=== PATIENT | male | born 1965 | race Caucasian/White ===

== ENCOUNTER 2017-08-22 14:43 | Inpatient (IN) | payer MEDICAID, OTHER ==
[~2017-08-22] VITALS: Ht 180.3 cm; Wt 99.8 kg
[2017-08-22 14:45] VITALS: BP 144/87
--- NOTE | 2017-08-22 15:00 | NUR ---
52 YO M TO WITH C/O CP AND HEADACHE. AWAKE ALERT AND ORIENTED TO PERSON PLACE TIME AND EVENT. PT STATES PAIN STARTED X1WK AGO WITH INCREASED PAIN YESTERDAY EVENING. PAIN 10/10. PT DENIES ANY N/V/D. NO SOB AT THIS TIME. PT DENIES ANY ABD PAIN. PT POSITIONED FOR COMFORT. WILL CONTINUE TO MONITOR. ER MADE AWARE.
[2017-08-22] MEDS ORDERED: ASPIRIN 325 MG TAB PO ONE (15:10)
[2017-08-22] MEDS ORDERED: NITROGLYCERIN 2% 1 GM PKT TP ONE (15:10)
[2017-08-22] MEDS ORDERED: KETOROLAC 30 MG/ML VIAL IVP ONE (15:10)
--- NOTE | 2017-08-22 15:10 | NUR ---
Patient being evaluated by physician at bedside.
--- NOTE | 2017-08-22 15:20 | NUR ---
XRAY AT BEDSIDE
[2017-08-22 15:55] LABS: BASOPHILS % (AUTO) 0.3 % (0.0-2.0); EOSINOPHILS # (AUTO) 0.4 K/uL (0-0.4); EOSINOPHILS % (AUTO) 3.2 % (0.0-4.0); HEMOGLOBIN 15.1 g/dL (12.0-18.0); LYMPHOCYTES % (AUTO) 15.3 % (20.5-51.1); MEAN CORPUSCULAR HEMOGLOBIN 29 pg (27-31); MEAN CORPUSCULAR HGB CONC 34 g/dL (33-37); MEAN CORPUSCULAR VOLUME 86.2 fL (80-94); MONOCYTES # (AUTO) 0.8 K/uL (0.8-1.0); MONOCYTES % (AUTO) 6.1 % (1.7-9.3); NEUTROPHILS # (AUTO) 9.8 K/uL (1.8-7.7); NEUTROPHILS % (AUTO) 75.1 % (42.2-75.2); PLATELET COUNT (AUTO) 249 K/uL (140-450); RED BLOOD CELL COUNT(AUTO) 5.22 MIL/uL (4.20-6.10); WHITE BLOOD COUNT (AUTO) 13.1 K/uL (4.8-10.8)
--- NOTE | 2017-08-22 16:10 | NUR ---
PT OFFERED URINAL
[2017-08-22 16:46] LABS: PROTHROMBIN TIME 10.8 secs (10.8-13.4)
[2017-08-22 16:56] LABS: POTASSIUM 3.7 mmol/L (3.5-5.1)
[2017-08-22 16:57] LABS: ANION GAP 15.3 (8-16); CARBON DIOXIDE 27.4 mmol/L (21-32); CREATININE 1.3 mg/dL (0.7-1.3)
[2017-08-22 17:00] LABS: ALBUMIN 3.8 g/dL (3.4-5.0); TOTAL BILIRUBIN 0.5 mg/dL (0.0-1.0)
--- NOTE | 2017-08-22 17:00 | NUR ---
PT TALKING WITH FAMILY AY BEDSIDE IN NO APPEARENT DISTRESS
--- NOTE | 2017-08-22 17:25 | NUR ---
PT APPEARS TO BE SLEEPING IN NO APPEARENT DISTRESS WILL CONTINUE TO MONITOR
[2017-08-22] MEDS ORDERED: MORPHINE SULFATE 2 MG/ML SYR IVP PRN (17:50)
[2017-08-22] MEDS ORDERED: ACETAMINOPHEN 325 MG TAB PO PRN (17:50)
[2017-08-22] MEDS ORDERED: MUPIROCIN 2% OINT 22 GM TUBE TP PRN (17:50)
[2017-08-22] MEDS ORDERED: DOCUSATE SODIUM 100 MG GELCAP PO PRN (17:50)
[2017-08-22] MEDS ORDERED: HYDROcodone/APAP 5/325 MG 1 TAB TAB PO PRN (17:50)
[2017-08-22] MEDS ORDERED: ZOLPIDEM 5 MG TAB PO PRN (17:50)
[2017-08-22] MEDS ORDERED: LORazepam 2 MG/ML VIAL IM/IVP PRN (17:50)
[2017-08-22] MEDS ORDERED: ONDANSETRON 4 MG/2 ML VIAL IM/IVP PRN (17:50)
[2017-08-22] MEDS ORDERED: NITROGLYCERIN 0.4 MG TAB SL PRN (17:55)
--- NOTE | 2017-08-22 18:14 | NUR ---
EMT AT BED SIDE CONNECTING PT TO PORTABLE MONITOR. PT IN NO APPEARENT DISTRESS.
[2017-08-22 18:20] VITALS: BP 119/66
--- NOTE | 2017-08-22 18:20 | NUR ---
PT ARRIVED ON THE UNIT W/ 2 E/R NURSES. PT IS ALERT AND ORIENTED. PT IS AMBULATORY. AMBULATED TO THE BATHROOM AND GAVE URINE SAMPLE. V/S WITHIN NORMAL RANGE. PAIN LEVEL ABOUT 7/10. BEFORE IT WAS 10/10 IN THE ER. CHEST PAIN, "RADIATES TO THE L SHOULDER TO THE BACK." ADMINISTERED TELE MONITOR. NOTED NITRO BID. MRSA SCREENING DONE. BROWN SOCK ADMINISTERED. ALL PERSONAL BELONGINGS, INCLUDING PHONE AND SHOES IN THE DRAWER. IV SITE ON R AC 20G. WILL CONTINUE TO MONITOR PT.
--- NOTE | 2017-08-22 18:25 | NUR ---
Patient will be admitted to care of DR VELÁZQUEZ. Admited to TELE. Will go to room 111A. Belongings list completed. Report to [facility] .
[2017-08-22 18:30] VITALS: BP 119/66
[2017-08-22] MEDS: NACL 0.9% 1,000 ML IV SCH (19:08)
--- NOTE | 2017-08-22 19:10 | NUR ---
ENDORSED PT TO THE POLISHING MACHINE OPERATOR NURSE AT BEDSIDE FOR CONTINUITY OF CARE. PT IN STABLE CONDITION.
--- NOTE | 2017-08-22 19:15 | NUR ---
RECEIVED REPORT FROM [facility] NURSE CANALES AT BEDSIDE FOR CONTINUITY OF CARE. PT [id number]. PT IV RAC 20G NS 60 ML/HR. NO SOB NO S/S OF DISTRESS. ON RA. BED LOWERED CALL LIGHT WITHIN REACH. WILL CONTINUE TO MONITOR.
[2017-08-22] MEDS ORDERED: NICOTINE TRANSD SYS 14 MG/24 HR PATCH TD SCH (20:00)
[2017-08-22] MEDS: METOPROLOL 25 MG TAB PO SCH (20:07)
[2017-08-22] MEDS ORDERED: KETOROLAC 15 MG/ML VIAL IVP PRN (20:10)
[2017-08-22] MEDS ORDERED: IBUPROFEN 600 MG TAB PO PRN (20:10)
[2017-08-22 20:34] LABS: APPEARANCE,URINE CLEAR (CLEAR); COLOR,URINE AMBER (YELLOW)
[2017-08-22 20:35] LABS: BILIRUBIN,URINE NEGATIVE (NEGATIVE); BLOOD, URINE NEGATIVE (NEGATIVE); LEUKOCYTE ESTERASE ,URINE NEGATIVE (NEGATIVE); NITRITE, URINE NEGATIVE (NEGATIVE); PH,URINE 6.5 (5.0-9.0); UGLUCOSE NEGATIVE (NEGATIVE)
[2017-08-22 20:42] LABS: RBC,URINE 0-5 (RARE) /HPF (0-5); WBC,URINE 0-5 (RARE) /HPF (0-5)
[2017-08-22] MEDS ORDERED: ATORVASTATIN 20 MG TAB PO SCH (21:00)
--- NOTE | 2017-08-22 22:00 | NUR ---
PT TOOK MEDS WELL WILL CONTINUE TO MONITOR. PT AWARE OF NPO AFTER MIDNIGHT.
[2017-08-22 23:10] LABS: CHOL/HDL RATIO 5.3 (1-4.5); PHOSPHORUS 3.2 mg/dL (2.5-4.9); THYROID STIMULATING HORMONE 0.9 uIU/mL (0.34-3.74)
[2017-08-23] VITALS: BP 117/51
[2017-08-23 00:37] LABS: BARBITURATE, URINE NEG. ng/ml (NEG <=200); BENZODIAZEPINE, URINE NEG. ng/mL (NEG <=200); CANNABINOID, URINE NEG. ng/mL (NEG <=50); COCAINE, URINE NEG. ng/mL (NEG <=300); OPIATE, URINE NEG. ng/mL (NEG <=2000); PHENCYCLIDINE SCREEN,URINE NEG. ng/mL (NEG <=25)
--- NOTE | 2017-08-23 02:59 | NUR ---
PT SLEEPING NO SOB NO S/S OF DISTRESS WILL CONTINUE TO MONITOR.
[2017-08-23 04:00] VITALS: BP 126/63
--- NOTE | 2017-08-23 04:00 | NUR ---
PT SLEEPING NO SOB NO S/S OF DISTRESS. WILL CONTINUE TO MONITOR.
--- NOTE | 2017-08-23 07:30 | NUR ---
ENDORSED REPORT TO DAYSHIFT NURSE AT BEDSIDE FOR CONTINUITY OF CARE.
--- NOTE | 2017-08-23 07:30 | NUR ---
RECEIVED REPORT FROM RECORDS MANAGEMENT COORDINATOR RN. PT SLEEPING IN BED AROUSABLE. A/O X4. VERBALIZES NEEDS. SKIN DRY AND WARM TO TOUCH. IN ROOM AIR SPO2 96%. LUNGS CLEAR ON AUSCULTATION. EVEN EXPANSION. RIGHT AC NOTED INTACT, NO SWELLING NO INFILTRATION NOTED. NS RUNNING AT 60 ML/HR. ABDOMEN SOFT ROUND AND NON-TENDER. HYPOACTIVE BOWEL SOUND. SKIN INTACT. KEPT HOB ELEVATED, BED IN LOW POSITION LOCKED. WILL CONTINUE TO MONITOR.
[2017-08-23 07:36] LABS: BASOPHILS % (AUTO) 0.3 % (0.0-2.0); EOSINOPHILS # (AUTO) 0.5 K/uL (0-0.4); HEMATOCRIT 40.3 % (36-52); HEMOGLOBIN 13.5 g/dL (12.0-18.0); LYMPHOCYTES # (AUTO) 2.8 K/uL (2.0-11.5); LYMPHOCYTES % (AUTO) 21.6 % (20.5-51.1); MEAN CORPUSCULAR HEMOGLOBIN 29 pg (27-31); MEAN CORPUSCULAR HGB CONC 34 g/dL (33-37); MEAN CORPUSCULAR VOLUME 86.4 fL (80-94); MONOCYTES # (AUTO) 0.9 K/uL (0.8-1.0); MONOCYTES % (AUTO) 6.8 % (1.7-9.3); NEUTROPHILS # (AUTO) 8.8 K/uL (1.8-7.7); NEUTROPHILS % (AUTO) 67.3 % (42.2-75.2); PLATELET COUNT (AUTO) 215 K/uL (140-450); RED BLOOD CELL COUNT(AUTO) 4.67 MIL/uL (4.20-6.10); RED CELL DISTRIBUTION WIDTH 13.8 % (11.6-13.7); WHITE BLOOD COUNT (AUTO) 13.1 K/uL (4.8-10.8)
[2017-08-23 08:00] VITALS: BP 118/73
[2017-08-23 08:20] LABS: ANION GAP 11.1 (8-16); CREATININE 1.1 mg/dL (0.7-1.3); POTASSIUM 4.1 mmol/L (3.5-5.1)
[2017-08-23 08:22] LABS: T4 (THYROXINE) 7.4 ug/dL (4.5-12.0)
[2017-08-23 08:27] LABS: MAGNESIUM 1.9 mg/dL (1.8-2.4); PHOSPHORUS 2.5 mg/dL (2.5-4.9)
[2017-08-23] MEDS ORDERED: LISINOPRIL 5 MG TAB PO SCH (09:00)
[2017-08-23] MEDS ORDERED: ASPIRIN 81 MG TAB.CHEW PO SCH (09:00)
[2017-08-23] MEDS: METOPROLOL 25 MG TAB PO SCH (09:00)
[2017-08-23] MEDS: NACL 0.9% 1,000 ML IV SCH ×2 (09:15→12:36)
--- NOTE | 2017-08-23 10:05 | NUR ---
CM NOTE PER [facility] PH# [phone] EXT *[phone], REVIEWS SHOULD BE SENT TO BOTH [facility] AND [facility]. [facility] ALSO STATED THAT FOR ANY DISCHARGE NEEDS FOR DME OR HOME HEALTH TO CONTACT [facility] AND FOR ANY DISCHARGE NEED FOR SNF TO CONTACT [facility]. INITIAL REVIEW FAXED TO [facility] [phone] PH# [phone] [facility] EXT [phone] AND TO [facility] [phone] PH# [phone] [facility] EXT *[phone].
[2017-08-23 12:00] VITALS: BP 118/73
[2017-08-23] MEDS ORDERED: CYCLOBENZAPRINE 10 MG TAB PO PRN (12:15)
[2017-08-23] MEDS ORDERED: INSULIN LISPRO SLIDING SCALE 100 UNITS/ML VIAL SUBQ PRN (12:20)
[2017-08-23] MEDS ORDERED: DEXTROSE 50% 50 ML SYR IVP PRN (12:20)
--- NOTE | 2017-08-23 12:45 | NUR ---
PT REFUSED IV FLUID ADMINISTRATION. INSIST TO TAKE OUT IV CANNULA. NURSE EXPLAINED THE NEED OF IV CANNULA IN CASE OF EMERGENCY FOR NOW. WILL REMOVE BEFORE PT LEAVE. PT SAID OKAY. PT WANTS TO GO HOME WITHOUT DISCHARGE ORDER. DR. RHOADES AWARE. PT ASKING FOR PAPERS TO SIGN SO THAT HE CAN LEAVE.
--- NOTE | 2017-08-23 12:54 | NUR ---
PT INSISTING TO GO HOME RIGHT NOW. DR. GREGORY MADE AWARE. SAID OKAY TO LEAVE PT ON AMA. AMA PAPER SIGNED BY PT.
--- NOTE | 2017-08-23 12:59 | NUR ---
NOTIFY PT THAT DOCTOR WANTS TO TALK WITH HIM AFTER SHE BACK FROM BREAK. PT STATED HE DOESN'T WANT TO WAIT ANYBODY.
--- NOTE | 2017-08-23 13:05 | NUR ---
PT LEFT ROOM. AMBULATORY. GIRLFRIEND WAS WITH HIM.
[2017-08-23] MEDS ORDERED: BLOOD GLUCOSE MONITORING 1 DEV DEV FS SCH (16:30)
[2017-08-23] MEDS ORDERED: NICOTINE TRANSD SYS 14 MG/24 HR PATCH TD SCH (21:00)
== END 2017-08-23 13:05 | disposition left against medical advice (07) | DRG 243 ==
LOC: MED 14:43 → MTU 17:55
PROVIDERS: ADMIT General Practice; ATTEND General Practice
DX: K21.9 Gastro-esophageal reflux disease without esophagitis (principal); N17.0 Acute kidney failure with tubular necrosis; F15.10 Other stimulant abuse, uncomplicated; E78.5 Hyperlipidemia, unspecified; E11.9 Type 2 diabetes mellitus without complications; D72.829 Elevated white blood cell count, unspecified; M94.0 Chondrocostal junction syndrome [Tietze]; Z53.21 Procedure and treatment not carried out due to patient leaving prior to being seen by health care provider; I49.9 Cardiac arrhythmia, unspecified; F17.210 Nicotine dependence, cigarettes, uncomplicated; S43.005A Unspecified dislocation of left shoulder joint, initial encounter; X58.XXXA Exposure to other specified factors, initial encounter; Y93.89 Activity, other specified; Y92.89 Other specified places as the place of occurrence of the external cause; Z71.51 Drug abuse counseling and surveillance of drug abuser; Z71.6 Tobacco abuse counseling; Y99.8 Other external cause status
CPT/HCPCS: 36415; 71045; 73030; 80048; 80053; 80305; 81001; 83036; 83690; 83735; 83880; 84100; 84134; 84436; 84443; 84479; 84484; 85025; 85610; 85730; 87081; 93005; 93970; J1815; J1885; J2270; J7030; Q0092